=== PATIENT | female | born 2005 | race African-American/Black ===

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

== ENCOUNTER 2024-06-22 07:38 | Emergency (ER) | payer OTHER ==
[2024-06-22] MEDS ORDERED: Ibuprofen 200 MG TAB ONE (07:56)
[2024-06-22] MEDS ORDERED: Dexamethasone 10 MG/ML VIAL ONE (07:56)
[2024-06-22] MEDS ORDERED: Acetaminophen 500 MG TAB ONE (07:56)
== END 2024-06-22 08:10 | disposition home or self-care (01) ==
LOC: CSHERS 07:38
DX: J02.9 Acute pharyngitis, unspecified (principal); R05.9 Cough, unspecified; Z55.6 Problems related to health literacy
CPT/HCPCS: 99283; J1100

== ENCOUNTER 2024-06-29 05:13 | Emergency (ER) | payer OTHER ==
[2024-06-29] MEDS ORDERED: Dexamethasone 10 MG/ML VIAL ONE (06:35)
[2024-06-29] MEDS ORDERED: Ketorolac Tromethamine 30 MG (1 mL) VIAL ONE (06:35)
== END 2024-06-29 09:01 | disposition home or self-care (01) ==
LOC: CSHERS 05:13
DX: J11.1 Influenza due to unidentified influenza virus with other respiratory manifestations (principal); J45.909 Unspecified asthma, uncomplicated; F17.290 Nicotine dependence, other tobacco product, uncomplicated
CPT/HCPCS: 71045; 87081; 87428; 87430; 96372; J1100; J1885

== ENCOUNTER 2024-08-02 04:25 | Emergency (ER) | payer OTHER | END 2024-08-02 05:12 | disposition home or self-care (01) | LOC: CSHERS 04:25 | DX: J03.90 Acute tonsillitis, unspecified (principal); F17.290 Nicotine dependence, other tobacco product, uncomplicated | CPT/HCPCS: 99282 ==

== ENCOUNTER 2024-09-17 15:27 | Emergency (ER) | payer OTHER, BC ==
[2024-09-17] MEDS ORDERED: Ibuprofen 200 MG TAB ONE (16:28)
== END 2024-09-17 17:05 | disposition home or self-care (01) ==
LOC: CSHERS 15:27
DX: M79.675 Pain in left toe(s) (principal); F17.290 Nicotine dependence, other tobacco product, uncomplicated; W22.8XXA Striking against or struck by other objects, initial encounter
CPT/HCPCS: 99283

== ENCOUNTER 2025-02-10 10:54 | Emergency (ER) | payer OTHER ==
[2025-02-10] MEDS ORDERED: predniSONE 20 MG TAB ONE (12:37)
== END 2025-02-10 12:40 | disposition home or self-care (01) ==
LOC: CSHERS 10:54
DX: R21 Rash and other nonspecific skin eruption (principal); F17.290 Nicotine dependence, other tobacco product, uncomplicated
CPT/HCPCS: 99282; J7512

== ENCOUNTER 2025-04-19 18:58 | Emergency (ER) | payer OTHER ==
[2025-04-19] MEDS ORDERED: Ketorolac Tromethamine 30 MG (1 mL) VIAL ONE (19:37)
== END 2025-04-19 20:36 | disposition home or self-care (01) ==
LOC: CSHERS 18:58
DX: S50.12XA Contusion of left forearm, initial encounter (principal); F17.290 Nicotine dependence, other tobacco product, uncomplicated; W01.0XXA Fall on same level from slipping, tripping and stumbling without subsequent striking against object, initial encounter
CPT/HCPCS: 96372; 99283; J1885